=== PATIENT | female | born 1985 | race Caucasian/White ===

== ENCOUNTER 2017-07-22 15:58 | Emergency (ER) | payer MEDICAID ==
[2017-07-22] MEDS: ACETAMINOPHEN 500 MG TAB PO (17:49)
[2017-07-22] MEDS: IBUPROFEN 800 MG TAB PO (17:49)
== END 2017-07-22 18:08 | disposition home or self-care (01) ==
LOC: FTE 15:58
DX: J11.1 Influenza due to unidentified influenza virus with other respiratory manifestations (principal)
CPT/HCPCS: 99284; Z7502

== ENCOUNTER 2018-04-30 19:52 | Emergency (ER) | payer MEDICAID ==
[2018-04-30 20:48] LABS: ADD MAN DIFF? NO
[2018-04-30 20:51] LABS: BASOPHILS % 0.3 % (0.0-2.0); EOSINOPHILS # 0.1 10^3/ul (0.0-0.5); EOSINOPHILS % 0.6 % (0.0-7.0); HEMATOCRIT 39.3 % (37.0-47.0); LYMPHOCYTES % 29.8 % (15.0-51.0); MEAN CORPUSCULAR HEMOGLOBIN 28.7 pg (29.0-33.0); MEAN CORPUSCULAR HGB CONC 33.1 g/dl (32.0-37.0); MEAN CORPUSCULAR VOLUME 86.8 fl (82.0-101.0); MEAN PLATELET VOLUME 9.1 fl (7.4-10.4); MONOCYTE # 0.8 10^3/ul (0.3-0.9); MONOCYTES % 5.5 % (0.0-11.0); NEUTROPHIL # 8.6 10^3/ul (1.6-7.5); NEUTROPHILS % 63.2 % (39.0-77.0); PLATELET COUNT 372 10^3/UL (140-415); RED BLOOD COUNT 4.53 10^6/ul (4.20-5.40); RED CELL DISTRIBUTION WIDTH 13.1 % (11.5-14.5)
[2018-04-30 20:51] LABS: WHITE BLOOD COUNT 13.5 10^3/ul (4.8-10.8)
[2018-04-30 21:02] LABS: ADD UMIC YES; UR ASCORBIC ACID NEGATIVE (NEGATIVE); UR BACTERIA FEW /HPF (NONE SEEN); UR BILIRUBIN (Dip) NEGATIVE (NEGATIVE); UR BLOOD (Dip) 3+ mg/dL (NEGATIVE); UR CLARITY CLEAR (CLEAR); UR COLOR STRAW (YELLOW); UR GLUCOSE (Dip) NEGATIVE (NEGATIVE); UR KETONES (Dip) TRACE mg/dL (NEGATIVE); UR LEUKOCYTE ESTERASE (Dip) NEGATIVE Leu/ul (NEGATIVE); UR NITRITE (Dip) NEGATIVE (NEGATIVE); UR RBC 2 /HPF (0-5); UR SPECIFIC GRAVITY (Dip) 1.003 (1.003-1.030); UR SQUAMOUS EPITHELIAL CELL FEW /HPF (FEW); UR TOTAL PROTEIN (Dip) NEGATIVE (NEGATIVE); UR UROBILINOGEN (Dip) NEGATIVE (NEGATIVE); UR WBC 6 /HPF (0-5)
== END 2018-04-30 22:30 | disposition home or self-care (01) ==
LOC: FTE 19:52
DX: O20.9 Hemorrhage in early pregnancy, unspecified (principal); R10.2 Pelvic and perineal pain; Z3A.08 8 weeks gestation of pregnancy
CPT/HCPCS: 36415; 76801; 81001; 84702; 85025; 86900; 86901; 99284-25

== ENCOUNTER 2018-12-02 05:40 | Inpatient (IN) | payer MEDICAID ==
[2018-12-02] MEDS ORDERED: LIDOCAINE 1% (MPF) 30 ML INJ INJ (06:00)
[2018-12-02] MEDS ORDERED: CARBOPROST 250 MCG INJ IM (06:00)
[2018-12-02] MEDS ORDERED: BUTORPHANOL 2 MG INJ IV (06:00)
[2018-12-02] MEDS ORDERED: MISOPROSTOL 200 MCG TAB PR ×2 (06:00→18:00)
[2018-12-02] MEDS ORDERED: OXYTOCIN 30 UNITS/LR 500 ML IV (06:00)
[2018-12-02] MEDS ORDERED: METHYLERGONOVINE 0.2 MG INJ IM (06:00)
[2018-12-02] MEDS: LACTATED RINGER'S 1,000 ML IV ×4 (07:33→23:03)
[2018-12-02 08:39] LABS: ADD MAN DIFF? NO
[2018-12-02 08:45] LABS: BASOPHILS % 0.4 % (0.0-2.0); EOSINOPHILS % 0.4 % (0.0-7.0); HEMATOCRIT 35.6 % (37.0-47.0); HEMOGLOBIN 11.6 g/dl (12.0-16.0); LYMPHOCYTES # 2.4 10^3/ul (0.8-2.9); LYMPHOCYTES % 23.5 % (15.0-51.0); MEAN CORPUSCULAR HEMOGLOBIN 27.8 pg (29.0-33.0); MEAN CORPUSCULAR HGB CONC 32.6 g/dl (32.0-37.0); MEAN CORPUSCULAR VOLUME 85.2 fl (82.0-101.0); MEAN PLATELET VOLUME 10.2 fl (7.4-10.4); MONOCYTE # 0.6 10^3/ul (0.3-0.9); MONOCYTES % 5.5 % (0.0-11.0); NEUTROPHILS % 67.9 % (39.0-77.0); PLATELET COUNT 261 10^3/UL (140-415); RED BLOOD COUNT 4.18 10^6/ul (4.20-5.40); RED CELL DISTRIBUTION WIDTH 14.2 % (11.5-14.5)
[2018-12-02 08:45] LABS: WHITE BLOOD COUNT 10.4 10^3/ul (4.8-10.8)
[2018-12-02 09:10] LABS: INR 0.92; PROTIME 12.5 Sec (11.9-14.9)
[2018-12-02 09:11] LABS: GLUCOSE 113 mg/dl (70-220)
[2018-12-02 09:11] LABS: PARTIAL THROMBOPLASTIN TIME 25.6 Sec (23.0-35.0)
[2018-12-02 09:43] LABS: HEPATITIS B SURFACE ANTIGEN NEGATIVE (NEGATIVE)
[2018-12-02] MEDS: DEXTROSE 5%-LR 1,000 ML IV (17:35)
[2018-12-02] MEDS ORDERED: morphine SULFATE/PF (10 MG/10 ML) INJ (17:58)
[2018-12-02] MEDS ORDERED: NA PHOSPHATE/BIPHOS 133 ML ENEMA PR (18:00)
[2018-12-02] MEDS ORDERED: OXYTOCIN 30 UNITS/LR 500 ML BAG IV (18:00)
[2018-12-02] MEDS ORDERED: PHENYLephrine (100 MCG/ML) 10ML SYG (18:00)
[2018-12-02] MEDS ORDERED: OXYCODONE/ACETAMINOPHEN (5/325) TAB PO (18:00)
[2018-12-02 18:16] LABS: RAPID PLASMA REAGIN NONREACTIVE (NR)
[2018-12-02] MEDS ORDERED: ONDANSETRON 4 MG INJ (18:42)
[2018-12-02] MEDS: OXYTOCIN 30 UNITS/LR 500 ML IV ×2 (19:01→20:00)
[2018-12-02] MEDS ORDERED: ALBUTEROL 0.083% (NEB) 2.5 MG/3 ML AMP HHN (20:00)
[2018-12-02] MEDS ORDERED: HYDROmorphONE 1 MG/5 ML IV SYRINGE IV ×3 (20:00)
[2018-12-02] MEDS ORDERED: HYDROmorphONE 0.5 MG/0.5 ML SYG IV ×2 (20:00)
[2018-12-02] MEDS ORDERED: DIPHENHYDRAMINE 50 MG INJ IV ×2 (20:00)
[2018-12-02] MEDS ORDERED: KETOROLAC 30 MG INJ IV (20:00)
[2018-12-02] MEDS: CEFAZOLIN 2 GM/50 ML (PMX) 50 ML IVPB (20:00)
[2018-12-02] MEDS ORDERED: ONDANSETRON 4 MG INJ IV ×2 (20:00)
[2018-12-02] MEDS ORDERED: FENTAnyl 50 MCG/ML VIAL IV ×3 (20:00)
[2018-12-02] MEDS ORDERED: NALOXONE (0.4 MG/ML) INJ IV (20:00)
[2018-12-02] MEDS ORDERED: METOCLOPRAMIDE 10 MG INJ IV (20:00)
[2018-12-02] MEDS: KETOROLAC 30 MG INJ IV (20:15)
[2018-12-02] MEDS: SENNA/DOCUSATE NA (8.6MG/50MG) TAB PO (21:00)
[2018-12-03] MEDS: KETOROLAC 30 MG INJ IV ×3 (06:15→18:06)
[2018-12-03] MEDS: LACTATED RINGER'S 1,000 ML IV (06:16)
[2018-12-03] MEDS: LANOLIN HPA 1 PKT TOP (06:16)
[2018-12-03 08:18] LABS: ADD MAN DIFF? NO
[2018-12-03 08:21] LABS: BASOPHILS % 0.2 % (0.0-2.0); EOSINOPHILS % 0.1 % (0.0-7.0); HEMATOCRIT 29.9 % (37.0-47.0); HEMOGLOBIN 9.6 g/dl (12.0-16.0); LYMPHOCYTES # 2.1 10^3/ul (0.8-2.9); LYMPHOCYTES % 15.1 % (15.0-51.0); MEAN CORPUSCULAR HEMOGLOBIN 27.7 pg (29.0-33.0); MEAN CORPUSCULAR HGB CONC 32.1 g/dl (32.0-37.0); MEAN CORPUSCULAR VOLUME 86.2 fl (82.0-101.0); MEAN PLATELET VOLUME 10.2 fl (7.4-10.4); MONOCYTE # 0.8 10^3/ul (0.3-0.9); NEUTROPHIL # 10.6 10^3/ul (1.6-7.5); NEUTROPHILS % 77.4 % (39.0-77.0); PLATELET COUNT 225 10^3/UL (140-415); RED BLOOD COUNT 3.47 10^6/ul (4.20-5.40); RED CELL DISTRIBUTION WIDTH 14.2 % (11.5-14.5)
[2018-12-03 08:21] LABS: WHITE BLOOD COUNT 13.7 10^3/ul (4.8-10.8)
[2018-12-03] MEDS: SENNA/DOCUSATE NA (8.6MG/50MG) TAB PO ×2 (08:55→21:22)
[2018-12-03] MEDS: IBUPROFEN 600 MG TAB PO ×2 (18:00→21:22)
[2018-12-04] MEDS: OXYCODONE/ACETAMINOPHEN (5/325) TAB PO ×4 (00:12→23:40)
[2018-12-04] MEDS: IBUPROFEN 600 MG TAB PO ×5 (05:30→23:39)
[2018-12-04] MEDS: SENNA/DOCUSATE NA (8.6MG/50MG) TAB PO ×2 (09:00→21:38)
[2018-12-05] MEDS: IBUPROFEN 600 MG TAB PO ×2 (05:13→12:00)
[2018-12-05] MEDS: OXYCODONE/ACETAMINOPHEN (5/325) TAB PO ×2 (05:14→10:37)
[2018-12-05] MEDS: SENNA/DOCUSATE NA (8.6MG/50MG) TAB PO (08:47)
[2018-12-05] MEDS: MEASLES,MUMPS,RUBELLA VACCINE INJ SC* (09:00)
[2018-12-05] MEDS: DIPHTH/TET/ACEL PERTUSS (ADULT) 0.5 ML VIAL IM* (09:00)
== END 2018-12-05 11:50 | disposition home or self-care (01) | DRG 788 ==
LOC: L-D 05:40 → PP1 21:26
PROVIDERS: Specialist
PROC: 10D00Z1 Extraction of Products of Conception, Low, Open Approach (ICD-10-PCS; principal; 2018-12-02 13:00)
PROC: 3E033VJ Introduction of Other Hormone into Peripheral Vein, Percutaneous Approach (ICD-10-PCS; 2018-12-02 13:00)
DX: O32.1XX0 Maternal care for breech presentation, not applicable or unspecified (principal); O24.419 Gestational diabetes mellitus in pregnancy, unspecified control; Z3A.38 38 weeks gestation of pregnancy; Z37.0 Single live birth
CPT/HCPCS: 76815; 82947; 82962; 85025; 85610; 85730; 86592; 86850; 86900; 86901; 87340; 99464

== ENCOUNTER 2019-03-20 18:16 | Emergency (ER) | payer MEDICAID ==
[2019-03-20] MEDS: DIPHENHYDRAMINE 50 MG INJ IM (21:02)
== END 2019-03-20 21:10 | disposition home or self-care (01) ==
LOC: E/R 18:16
DX: B65.3 Cercarial dermatitis (principal)
CPT/HCPCS: 96372; 99284-25